=== PATIENT | female | born 1995 | race Hispanic/Latino ===

== ENCOUNTER 2021-05-24 11:24 | Outpatient (CLI) | payer OTHER ==
[2021-05-25 01:32] LABS: SARS-CoV-2 PCR by NAA Not Detected (NotDetected)
== END 2021-05-24 11:25 | disposition home or self-care (01) ==
LOC: CSHLAB 11:24
PROVIDERS: ATTEND Family Medicine
DX: Z20.822 Contact with and (suspected) exposure to COVID-19 (principal)
CPT/HCPCS: U0003; U0005

== ENCOUNTER 2021-05-27 17:20 | Inpatient (IN) | payer MEDICAID, OTHER, SELFPAY ==
[~2021-05-27 17:20] MED LIST: Bupivacaine 0.25% HCL 30 ML VIAL ONE
[2021-05-27] MEDS ORDERED: Promethazine HCl 25 MG/ML VIAL IM PRN (18:30)
[2021-05-27] MEDS ORDERED: HYDROcodone/Acetaminophen 5/325 mg Tablet PO PRN (18:30)
[2021-05-27] MEDS ORDERED: Acetaminophen 500 MG TAB PO PRN (18:30)
[2021-05-27] MEDS ORDERED: Methylergonovine 0.2 MG/ML VIAL IM PRN (18:30)
[2021-05-27] MEDS ORDERED: Carboprost 250 MCG/ML AMP IM PRN (18:30)
[2021-05-27] MEDS ORDERED: Butorphanol Tartrate 1 MG/ML VIAL SLOW IVP PRN (18:30)
[2021-05-27] MEDS ORDERED: Misoprostol 200 MCG TAB PR PRN (18:30)
[2021-05-27] MEDS ORDERED: Diphenoxylate HCl/Atropine Tablet PO PRN (18:30)
[2021-05-27] MEDS ORDERED: Lactated Ringer's 1,000 ML IV SCH (18:30)
[2021-05-27] MEDS ORDERED: hydrALAZINE 20 MG/ML VIAL SLOW IVP PRN (18:30)
[2021-05-27] MEDS ORDERED: Ondansetron PF 4 MG/2 ML Vial IVP PRN (18:30)
[2021-05-27] MEDS ORDERED: Lidocaine 1% (PF) 30 ML VIAL SC PRN (18:30)
[2021-05-27] MEDS ORDERED: Ibuprofen 800 MG TAB PO PRN (18:30)
[2021-05-27] MEDS ORDERED: NS w/ Oxytocin 30 units 500 ML IV SCH (18:30)
[2021-05-27 18:35] VITALS: BMI 29.9
[2021-05-27 19:46] LABS: Mean Corpuscular HGB CONC 32.6 g/dL (32.0-36.0); Mean Corpuscular Volume 82.8 fl (81.6-98.3); RBC Distribution Width 17.6 % (11.5-14.5); Red Blood Cell (RBC) Count 4.07 10x6/uL (3.90-5.03); White Blood Cell (WBC) Count 6.2 10x3/uL (3.5-10.5)
[2021-05-27 19:47] LABS: Platelet Count 103 10x3/uL (150-450)
[2021-05-27 19:48] LABS: Hep B Surf Ag Non-Reactive S/CO (NonReactive); Syphilis Antibody Nonreactive (Nonreactive); Syphilis Antibody Index 0.05 S/CO (<1.00 Non-Reactive)
[2021-05-27 19:52] LABS: HBSAg Index 0.14 S/CO (0-0.99)
[2021-05-27 22:10] LABS: SARS-CoV-2 NAA Rapid Test Not Detected (NotDetected)
[2021-05-28] MEDS ORDERED: NS w/ Oxytocin 30 units 500 ML IV SCH ×2 (01:00→11:12)
[2021-05-28] MEDS ORDERED: Fentanyl 2 mcg/Bup 0.1% Cadd 100 ML ONE (02:55)
[2021-05-28] MEDS ORDERED: Acetaminophen 325 MG TAB PO PRN (03:43)
[2021-05-28] MEDS ORDERED: ePHEDrine Sulfate 50 MG/10 ML VIAL SLOW IVP PRN (03:43)
[2021-05-28] MEDS ORDERED: Promethazine HCl 25 MG/ML VIAL IM PRN ×2 (03:43→11:12)
[2021-05-28] MEDS ORDERED: Naloxone HCl 0.4 mg/ml Vial IVP PRN ×2 (03:43)
[2021-05-28] MEDS ORDERED: Ondansetron PF 4 MG/2 ML Vial IVP PRN ×2 (03:43→11:12)
[2021-05-28] MEDS ORDERED: diphenhydrAMINE 50 MG/ML VIAL IVP PRN (03:43)
[2021-05-28] MEDS ORDERED: Hydrocerin (Eucerin) Cream 120 gm Jar TOP PRN (03:43)
[2021-05-28] MEDS ORDERED: Lactated Ringer's 500 ML IV PRN (03:43)
[2021-05-28] MEDS ORDERED: Fentanyl 2 mcg/Bupivacaine 0.1% Cassette 100 ML EPIDURAL SCH (03:45)
[2021-05-28] MEDS ORDERED: Communication Order-Pharmacy FS SCH (03:45)
[2021-05-28] MEDS ORDERED: Benzocaine-Menthol 82.5 ML CAN TOP PRN (11:12)
[2021-05-28] MEDS ORDERED: Boostrix 0.5 ML (Tdap) VIAL IM ONE (11:12)
[2021-05-28] MEDS ORDERED: hydrALAZINE 20 MG/ML VIAL SLOW IVP PRN (11:12)
[2021-05-28] MEDS ORDERED: diphenhydrAMINE 25 MG CAP PO PRN (11:12)
[2021-05-28] MEDS ORDERED: Bisacodyl 10 MG SUPP PR PRN (11:12)
[2021-05-28] MEDS ORDERED: Milk Of Magnesia 30 ML UDCUP PO PRN (11:12)
[2021-05-28] MEDS ORDERED: Lanolin Ointment 7 GM TUBE TOP PRN (11:12)
[2021-05-28] MEDS ORDERED: HYDROcodone/Acetaminophen 5/325 mg Tablet PO PRN ×2 (11:12)
[2021-05-28] MEDS ORDERED: Prenatal Vitamin 1 TAB PO SCH (11:30)
[2021-05-28 11:43] LABS: Creatinine, Urine Less than 20.00 mg/dL (47-110); Protein, Urine Random Quant Less than 10 mg/dL (1-14)
[2021-05-28] MEDS: Ibuprofen 800 MG TAB PO SCH ×2 (13:13→21:11)
[2021-05-28] MEDS: Ferrous Sulfate 325 MG TAB PO SCH (21:10)
[2021-05-28] MEDS: Docusate 100 MG CAP PO SCH (21:11)
[2021-05-29] MEDS: Ibuprofen 800 MG TAB PO SCH ×2 (06:03→13:39)
[2021-05-29] MEDS: Ferrous Sulfate 325 MG TAB PO SCH (08:53)
[2021-05-29] MEDS: Docusate 100 MG CAP PO SCH (08:53)
[2021-05-29] MEDS ORDERED: Prenatal Vitamin 1 TAB PO SCH (09:00)
[2021-05-29 11:40] VITALS: BP 99/55; TEMP 98.3
== END 2021-05-29 15:55 | disposition home or self-care (01) | DRG 807 ==
LOC: CSHLD/OP 17:20 → CSHLD 18:50 → CSHPP 05-28 12:00
PROVIDERS: ADMIT Family Medicine; ATTEND Family Medicine
PROC: 10E0XZZ Delivery of Products of Conception, External Approach (ICD-10-PCS; principal; 2021-05-27)
DX: O42.10 Premature rupture of membranes, onset of labor more than 24 hours following rupture, unspecified weeks of gestation (principal); Z37.0 Single live birth; Z3A.38 38 weeks gestation of pregnancy; O24.429 Gestational diabetes mellitus in childbirth, unspecified control; Z20.822 Contact with and (suspected) exposure to COVID-19
CPT/HCPCS: 36415; 51701; 51702; 82570; 84156; 85027; 86780; 86850; 86900; 86901; 87340; 99285; J0360; J2405; J2590; S0020; U0002